=== PATIENT | male | born 1960 | race Caucasian/White ===

== ENCOUNTER → 2021-01-26 | Day surgery (SDC) | payer OTHER ==
[~2021-01-26] MED LIST: COLACE100 MG PO; LORTAB PO; LOW DOSE ASPIRI81 MG PO; NEURONTIN800 MG PO; PERCOCET 5-3251 EACH PO; PROAIR DIGIHAL90 MCG INH; VITAMIN B12 PO
== END | disposition home or self-care (01) ==
LOC: OR 06:25
DX: K40.90 Unilateral inguinal hernia, without obstruction or gangrene, not specified as recurrent (principal); E53.8 Deficiency of other specified B group vitamins; F17.200 Nicotine dependence, unspecified, uncomplicated; Z20.822 Contact with and (suspected) exposure to COVID-19
CPT/HCPCS: C1781; J0690; J1100; J2001; J2250; J2405; J2704; J2710; J3010; J7030; J7120